=== PATIENT | female | born 1985 | race African-American/Black ===

== ENCOUNTER 2020-11-29 22:51 | Emergency (ER) | payer SELFPAY ==
[~2020-11-29] VITALS: Ht 170.2 cm; Wt 79.0 kg
[2020-11-29 22:56] VITALS: BP 108/82
== END 2020-11-29 23:25 | disposition left against medical advice (07) ==
LOC: ER 22:51
DX: F29 Unspecified psychosis not due to a substance or known physiological condition (principal); F20.9 Schizophrenia, unspecified
CPT/HCPCS: 99283